=== PATIENT | female | born 1970 | race Caucasian/White ===

== ENCOUNTER 2025-05-23 07:31 | Day surgery (SDC) | payer MEDICARE, SELFPAY ==
[2025-05-23] VITALS (7 sets, daily range): BP systolic 96–114; BP diastolic 55–78; PULSE 56–66; RESP 12–18; TEMP 36.2–36.3; O2SAT 99–100; BMI 19.3
--- NOTE | 2025-05-23 07:38 | PCM.PRE.AN2 ---
ASA Classification* ASA Classification ASA Classification: 2 Assessment & Plan Anesthesia* Anesthesia Assessment Anesthesia Assessment: Discussed sedation and/or anesthesia options, risks, benefits, and alternatives with patient/parents/legal guardian/POA. Questions invited. The patient/parents/legal guardian/POA seems to understand and agrees to proceed with anesthesia plan. Reviewed the physical assessment, medical history, allergy history and patient home medications list prior to surgery/procedure/anesthetic and documented any changes. Performed airway and anesthesia risk assessments. Anesthesia Type Anesthesia Type: MAC Anesthesia Focused Assessment* Airway Assessment Mouth opens: >3 cm Mallampati Score: II Labs Anesthesia Preop lab: CBC WBC, (4.4-11.0) 5.3 K/mm3 10/23/15, 08:25 RBC, (4.2-5.4) 4.24 M/mm3 10/23/15, 08:25 Hgb, (12.0-15.0) 12.8 g/dl 10/23/15, 08:25 Hct, (37-47) 39.4 % 10/23/15, 08:25 Plt Count, (150-450) 259 K/mm3 10/23/15, 08:25 CHEMISTRY Potassium, (3.5-5.1) 4.3 mmol/L 10/23/15, 08:25 Sodium, (136-145) 143 mmol/L 10/23/15, 08:25 BUN, (7-18) 20 mg/dL H 10/23/15, 08:25 Creatinine, (0.55-1.20) 0.84 mg/dL 10/23/15, 08:25 Glucose, (70-110) 90 mg/dL 10/23/15, 08:25 TSH, (0.358-3.74) 0.79 uIU/mL 10/23/15, 08:25 COAG Urine Test Negative Negative 04/07/15, 06:00 Pre-Assessment Diagnosis/Proposed Procedure Planned Operative Procedure(s): COLONOSCOPY, EGD Anesthesia History 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 When Was Last Pacemaker Check QUESTION #4 FULL TEXT: You/Your Family Experience fever (hyperthermia) with Anesthesia Last Oral Intake Last Oral intake: Last Oral Intake NPO since Meds taken in AM with sips of water? 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 Has anyone observed you stop No 05/19/25 17:43 breathing during sleep? STOP Results Negative 05/19/25 17:43 QUESTION #5 FULL TEXT : Do you snore loudly (louder than talking or can be heard through closed doors)? 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 Specify any problems Hx of Preganancy in last 3 No 05/19/25 17:43 Months Nurse Filling Out Transfusion MGRIFFITH 05/19/25 17:43 & Questions: Date: 05/19/25 05/19/25 17:43 Time: 17:45 05/19/25 17:43 Patient unable to answer at this time (ie. 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Medication ?Instructions ?Recorded ?Last Taken ?Type topiramate 50 mg tablet 50 mg PO BID 03/31/15 Unknown History ascorbic acid (vitamin C) 1,000 mg 1 g PO DAILY Supplemental 06/24/24 Unknown History tablet (Vitamin C) docusate sodium 100 mg capsule 300 mg PO DAILY Supplemental 06/24/24 Unknown History (Stool Softener) multivitamin with minerals-folic 1 tab PO DAILY 06/24/24 Unknown History acid 200 mcg chewable tablet (Women's Multivitamin Gummies) omega 7-qxy-lwi-fish oil 1,200 mg 1 cap PO DAILY Supplemental 06/24/24 Unknown History (144 mg-216 mg) capsule (Fish Oil) sertraline 100 mg tablet 200 mg PO DAILY Bi-Polar 06/24/24 Unknown History mirtazapine 45 mg tablet 45 mg PO QHS Bi-Polar 03/18/25 Unknown History naloxone 4 mg/actuation nasal 4 mg intranasal Q2M PRN opioid 03/18/25 Unknown History spray (Narcan) overdose oxycodone-acetaminophen 10 mg-325 1 tab PO Q6H PRN pain 03/18/25 Unknown History mg tablet tizanidine 4 mg tablet 8 mg PO QHS Pain Management 03/18/25 Unknown History zolpidem 12.5 mg tablet,extended 12.5 mg PO QHS insomnia 04/20/25 Unknown History release,multiphase ferrous sulfate 324 mg (65 mg 324 mg PO DAILY 05/19/25 Unknown History iron) tablet,delayed release Allergy/AdvReac Type Severity Reaction Status Date / Time gabapentin Allergy Mild Rash Verified 05/19/25 17:37 erythromycin base Allergy Rash Verified 05/19/25 17:37 Family History Father Myocardial infarction Hypertension Grandmother Cancer Myocardial infarction Alzheimer's dementia Grandfather Cancer Mother Alzheimer's dementia Hypertension Osteoarthritis Surgical History History of shoulder surgery History of carpal tunnel release of both wrists History of foot surgery History of knee surgery History of hip surgery H/O spinal fusion Social History household members: other details: Mother Smoking Status: Former smoker alcohol intake: current alcohol intake frequency: holidays/special occasions only Review of Systems (Anesthesia) ROS Narrative System reviewed and no additional complaints, except as documented.
[2025-05-23] MEDS: Lactated Ringers 1,000 ML 15 ML IV (08:15)
--- NOTE | 2025-05-23 08:23 | PCM.HP.STD ---
HPI - General General Date of Admission: 05/23/25 Date of Service: 05/23/25 Chief Complaint: Abdominal pain weight loss HPI Narrative Chief Complaint: Unintentional weight loss and abdominal pain Details: BRIAN ROQUE, is a 54 F who presents to the office today for establishment. Colonoscopy 12/21/[address] Ledesma with 1 small polyp and melanosis coli. Pathology with hyperplastic polyp. Referred from primary care provider due to decreased appetite and unexplained weight loss. Over the past year patient has lost about 20 pounds unintentionally. She has no appetite and when she goes to eat she will become nauseous and get full quickly. She denies any medication changes during this time. She does not vomit. She has intermittent episodes of generalized abdominal pain which happen 1-2 times per week. Patient has a daily bowel movement in the morning that is typically loose. She takes oxycodone acetaminophen daily and therefore takes preventative laxatives. She has family history of ulcerative colitis and colon cancer in her grandfather. Patient does not smoke or drink alcohol. [facility] Medical History Wears glasses Depression Bipolar disorder Migraine headache Former smoker Home Medications ?Medication ?Instructions ?Recorded ?Last Taken ?Type topiramate 50 mg tablet 50 mg PO BID 03/31/15 05/22/25 History ascorbic acid (vitamin C) 1,000 mg 1 g PO DAILY Supplemental 06/24/24 05/22/25 History tablet (Vitamin C) docusate sodium 100 mg capsule 300 mg PO DAILY Supplemental 06/24/24 Unknown History (Stool Softener) multivitamin with minerals-folic 1 tab PO DAILY 06/24/24 05/22/25 History acid 200 mcg chewable tablet (Women's Multivitamin Gummies) omega 2-arf-ume-fish oil 1,200 mg 1 cap PO DAILY Supplemental 06/24/24 05/21/25 History (144 mg-216 mg) capsule (Fish Oil) sertraline 100 mg tablet 200 mg PO DAILY Bi-Polar 06/24/24 05/22/25 History mirtazapine 45 mg tablet 45 mg PO QHS Bi-Polar 03/18/25 05/22/25 History naloxone 4 mg/actuation nasal 4 mg intranasal Q2M PRN opioid 03/18/25 Unknown History spray (Narcan) overdose oxycodone-acetaminophen 10 mg-325 1 tab PO Q6H PRN pain 03/18/25 05/22/25 History mg tablet tizanidine 4 mg tablet 8 mg PO QHS Pain Management 03/18/25 05/22/25 History zolpidem 12.5 mg tablet,extended 12.5 mg PO QHS insomnia 04/20/25 05/22/25 History release,multiphase ferrous sulfate 324 mg (65 mg 324 mg PO DAILY 05/19/25 05/22/25 History iron) tablet,delayed release Allergy/AdvReac Type Severity Reaction Status Date / Time gabapentin Allergy Mild Rash Verified 05/23/25 08:02 erythromycin base Allergy Rash Verified 05/23/25 08:02 Family History Father Myocardial infarction Hypertension Grandmother Cancer Myocardial infarction Alzheimer's dementia Grandfather Cancer Mother Alzheimer's dementia Hypertension Osteoarthritis Surgical History History of shoulder surgery History of carpal tunnel release of both wrists History of foot surgery History of knee surgery History of hip surgery H/O spinal fusion Social History household members: other details: Mother Smoking Status: Former smoker alcohol intake: current alcohol intake frequency: holidays/special occasions only ROS Constitutional Constitutional: Denies fatigue, fever(s), poor appetite, weight gain or weight loss Gastrointestinal Gastrointestinal: Denies belching, bloating, change in bowel habits, change in stool character, chewing difficulty, coffee ground emesis, constipation, cramping, diarrhea, dyspepsia, dysphagia, early satiety, excessive flatus, fecal incontinence, heartburn, hematemesis, hematochezia, hemorrhoids, loose stools, melena, nausea, odynophagia, rectal bleeding, tenesmus, vomiting or weight changes Vital Signs Vital Signs Vital Signs: 05/23/25 08:04 05/23/25 08:04 05/23/25 08:04 Temperature 97.4 F L Temperature Source Temporal Pulse Rate 63 Respiratory Rate 12 Respiratory Pattern Normal Blood Pressure 111/78 Blood Pressure Mean 89 Blood Pressure Source Monitor Blood Pressure Position Semi-Fowlers Blood Pressure Location Left Arm Baseline BP 111/78 Pulse Ox 100 Oxygen Delivery Method Room Air Weight Weight: 119 lb 11.376 oz Body Mass Index (BMI) 19.3 Physical Exam Const alert, oriented x3, no apparent distress and healthy appearing General Appearance: cooperative GI normal to inspection, nondistended, normoactive bowel sounds, soft to palpation, non-tender and non-distended Percussion: normal to percussion Rectal Exam: deferred Assessment & Plan Assessment/Plan (1) Abdominal pain: (2) Early satiety: (3) Unintentional weight loss: PLAN: Assessment and Plan Assessment and Plan (1) Unintentional weight loss: Status: Acute Plan: Adri is a 54-year-old female patient with past medical history of chronic pain, lumbar radiculopathy, anxiety and bipolar 1 disorder here today for evaluation. Patient referred from primary care provider due to unintentional weight loss over the past year. Patient has lost about 20 pounds without significant lifestyle changes. She endorses a lack of appetite and early satiety. She has nausea but does not vomit. Last colonoscopy was in [address] Ledesma which revealed 1 hyperplastic polyp. Workup thus far has included a CBC and a CMP which was largely unremarkable. I recommended upper and lower endoscopy for evaluation of unintentional weight loss. Patient was agreeable to proceed. - EGD - Colonoscopy - Follow-up after procedures (2) Early satiety: Status: Acute (3) Abdominal pain: Status: Acute
--- NOTE | 2025-05-23 08:30 | COLBX_PTH ---
PATIENT: BRIAN ROQUE LOC: EN U#:[id number] AGE/SX: 54/F ROOM: RE05/23/[address]: Dr. Arden Merida DO : 1970 BED: DIS: 05/23/2025 SPEC #: [id number] RECD: 05/23/25 09:40 STATUS: RICKY REDaniel #: [id number] SALUD: 05/23/25 08:[address]: Arden Merida DEPT: SURGICAL PATHOLOGY RECD BY: Joaquín Vincent ENTERED: 05/23/25 11:27 SP TYPE: COLON BX OT DR: Dr. Param Ness DO Tissues: A - Duodenum, NOS B - Esophagus, NOS C - Ileum, NOS Procedures: Surgery Specimen Level IV HEADER OPERATION: Colonoscopy with biopsies, EGD with biopsies PRE-OP DIAGNOSIS: Abdominal pain, early satiety, unintentional weight loss TISSUE SUBMITTED: A- Duodenum biopsy, B- Random esophagus biopsy, C- Terminal ileum biopsy MICROSCOPIC DIAGNOSIS A. Small intestine, duodenum, biopsy: - Normal villous architecture with no specific pathologic change. - Negative for increased intraepithelial lymphocytes. B. Esophagus, random, biopsy: - Squamous mucosa with mild reactive changes. - Negative for eosinophils. C. Small intestine, terminal ileum, biopsy: - No specific pathologic change. MICROSCOPIC DESCRIPTION Slides are reviewed. GROSS DESCRIPTION A. Received in fixative is one container labeled with the patient's name and designated Duodenum biopsy. The specimen consists of multiple irregular fragments of solano tissue that in aggregate measure 1.5 x 0.4 x 0.1 cm. The specimen is totally submitted in one cassette. B. Received in fixative is one container labeled with the patient's name and designated Random esophagus biopsy. The specimen consists of multiple irregular fragments of solano tissue that in aggregate measure 0.7 x 0.4 x 0.1 cm. The specimen is totally submitted in one cassette. C. Received in fixative is one container labeled with the patient's name and designated Terminal ileum biopsy. The specimen consists of two irregular fragments of solano tissue that measure 0.3 and 0.4 cm. The specimen is totally submitted in one cassette. AK 05/23/2025 CPT:58426l6
--- NOTE | 2025-05-23 09:35 | PCM.POST.ANE ---
Anesthesia: Postop Eval I Current Vital Signs Temperature: 97.1 F Pulse Rate: 64 Blood Pressure: 114/55 Respiratory Rate: 16 Pulse Ox: 99 Oxygen Delivery Method: Room Air Assessment Airway patent: Yes Spontaneous unlabored respirations: Yes Mental status: Awake and Confused nausea: No Vomiting: No Anesthesia Complication: No Fluid Hydration Crystalloid volume administer (ml): 800 Total IV fluid infused: 800 Progress Note Anesthesia document: Postop Eval 1 completed: Yes
--- NOTE | 2025-05-23 09:43 | OP.EGD_ITS ---
Patient Name: Ursula Morataya Procedure Date: 05/23/2025 8:55 AM Date of : 1970 Age: 54 Procedure: Upper GI endoscopy Indications: Epigastric abdominal pain, Functional Dyspepsia, Indigestion, Weight loss Providers: Arden Merida DO Medicines: Monitored Anesthesia Care Patient Profile: This is a 54 year old female. Refer to note in patient chart for documentation of history and physical. Patient has symptoms of chronic epigastric abdominal pain and chronic dyspepsia. Complications: No immediate complications. Procedure: Pre-Anesthesia Assessment: - Prior to the procedure, a History and Physical was performed, and patient medications and allergies were reviewed. The patient is competent. The risks and benefits of the procedure and the sedation options and risks were discussed with the patient. All questions were answered and informed consent was obtained. Patient identification and proposed procedure were verified by the physician in the pre-procedure area. Mental Status Examination: alert and oriented. Airway Examination: normal oropharyngeal airway and neck mobility. Respiratory Examination: clear to auscultation. CV Examination: normal. Prophylactic Antibiotics: The patient does not require prophylactic antibiotics. Prior Anticoagulants: The patient has taken no anticoagulant or antiplatelet agents except for NSAID medication. ASA Grade Assessment: II - A patient with mild systemic disease. After reviewing the risks and benefits, the patient was deemed in satisfactory condition to undergo the procedure. The anesthesia plan was to use monitored anesthesia care (MAC). Immediately prior to administration of medications, the patient was re-assessed for adequacy to receive sedatives. The heart rate, respiratory rate, oxygen saturations, blood pressure, adequacy of pulmonary ventilation, and response to care were monitored throughout the procedure. The physical status of the patient was re-assessed after the procedure. After obtaining informed consent, the endoscope was passed under direct vision. Throughout the procedure, the patient's blood pressure, pulse, and oxygen saturations were monitored continuously. The Colonoscope was introduced through the mouth, and advanced to the third part of the duodenum. Small bowel enteroscopy was deemed necessary. The upper GI endoscopy was accomplished without difficulty. The patient tolerated the procedure well. Scope In: 9:07:21 AM Scope Out: 9:10:55 AM Total Procedure Duration Time 0 hours 3 minutes 34 seconds Findings: Diffuse, white plaques were found in the entire esophagus. Biopsies were taken with a cold forceps for histology. Verification of patient identification for the specimen was done. Estimated blood loss was minimal. No gross lesions were noted in the entire examined stomach. Patchy mild inflammation characterized by erythema was found in the entire duodenum. Biopsies were taken with a cold forceps for histology. Verification of patient identification for the specimen was done. Estimated blood loss was minimal. Impression: - Esophageal plaques were found, consistent with candidiasis. Biopsied. - No gross lesions in the entire stomach. - Chronic duodenitis. Biopsied. Recommendation: - Discharge patient to home. - Resume previous diet. - Continue present medications. - Await pathology results. -, Nystatin swish and swallow x 7 days Procedure Code(s): --- Professional --- 04786, Small intestinal endoscopy, enteroscopy beyond second portion of duodenum, not including ileum; with biopsy, single or multiple CPT copyright 2021 [employer]. All rights reserved. The codes documented in this report are preliminary and upon program support clerk review may be revised to meet current compliance requirements. Arden Merida DO 05/23/2025 9:43:10 AM This report has been signed electronically. Number of Addenda: 0 Note Initiated On: 05/23/2025 8:55 AM
--- NOTE | 2025-05-23 09:44 | OP.PROVAT_ITS ---
05/23/2025 Param Ness Do Re : Upper GI endoscopy procedure for Ursula Morataya Dear [place] This procedure was performed on Friday, May 23, 2025. My impressions and recommendations are as follows: Impressions : - Esophageal plaques were found, consistent with candidiasis. Biopsied. - No gross lesions in the entire stomach. - Chronic duodenitis. Biopsied. Recommendations : - Discharge patient to home. - Resume previous diet. - Continue present medications. - Await pathology results. -, Nystatin swish and swallow x 7 days My findings are described in the full procedure note, which is enclosed. If I can be of further assistance, please feel free to contact me at . Sincerely, Arden Merida, 05/23/2025 9:43:10 AM This report has been signed electronically.
--- NOTE | 2025-05-23 09:46 | OP.PROVAT_ITS ---
05/23/2025 Param Ness Do Re : Colonoscopy procedure for Ursula Morataya [place] This procedure was performed on Friday, May 23, 2025. My impressions and recommendations are as follows: Impressions : - Diverticulosis in the recto-sigmoid colon. - Congested mucosa in the distal ileum and in the terminal ileum. Biopsied. Recommendations : - Discharge patient to home. - Resume previous diet. - Continue present medications. - Await pathology results. - Repeat colonoscopy in 10 years for screening purposes. My findings are described in the full procedure note, which is enclosed. If I can be of further assistance, please feel free to contact me at . Sincerely, Arden Merida, 05/23/2025 9:45:59 AM This report has been signed electronically.
--- NOTE | 2025-05-23 09:46 | OP.COLON_ITS ---
Patient Name: Ursula Morataya Procedure Date: 05/23/2025 9:11 AM Date of : 1970 Age: 54 Procedure: Colonoscopy Indications: Screening for colorectal malignant neoplasm Providers: Arden Merida DO Medicines: Monitored Anesthesia Care Patient Profile: This is a 54 year old female. Refer to note in patient chart for documentation of history and physical. Patient has symptoms of chronic epigastric abdominal pain and chronic dyspepsia. Last Colonoscopy: none. The patient's first colonoscopy is today. Complications: No immediate complications. Procedure: Pre-Anesthesia Assessment: - Prior to the procedure, a History and Physical was performed, and patient medications and allergies were reviewed. The patient is competent. The risks and benefits of the procedure and the sedation options and risks were discussed with the patient. All questions were answered and informed consent was obtained. Patient identification and proposed procedure were verified by the physician in the pre-procedure area. Mental Status Examination: alert and oriented. Airway Examination: normal oropharyngeal airway and neck mobility. Respiratory Examination: clear to auscultation. CV Examination: normal. Prophylactic Antibiotics: The patient does not require prophylactic antibiotics. Prior Anticoagulants: The patient has taken no anticoagulant or antiplatelet agents except for NSAID medication. ASA Grade Assessment: II - A patient with mild systemic disease. After reviewing the risks and benefits, the patient was deemed in satisfactory condition to undergo the procedure. The anesthesia plan was to use monitored anesthesia care (MAC). Immediately prior to administration of medications, the patient was re-assessed for adequacy to receive sedatives. The heart rate, respiratory rate, oxygen saturations, blood pressure, adequacy of pulmonary ventilation, and response to care were monitored throughout the procedure. The physical status of the patient was re-assessed after the procedure. After I obtained informed consent, the scope was passed under direct vision. Throughout the procedure, the patient's blood pressure, pulse, and oxygen saturations were monitored continuously. The Colonoscope was introduced through the anus and advanced to the terminal ileum. The colonoscopy was performed without difficulty. The patient tolerated the procedure well. The quality of the bowel preparation was adequate. The terminal ileum, ileocecal valve, appendiceal orifice, and rectum were photographed. Scope In: 9:12:36 AM Scope Withdrawal Time 0 hours 9 minutes 52 seconds Scope Out: 9:27:15 AM Total Procedure Duration Time 0 hours 14 minutes 39 seconds Findings: The perianal and digital rectal examinations were normal. A few small-mouthed diverticula were found in the recto-sigmoid colon. A patchy area of the distal ileum and terminal ileum was congested. Biopsies were taken with a cold forceps for histology. Verification of patient identification for the specimen was done. Estimated blood loss was minimal. Impression: - Diverticulosis in the recto-sigmoid colon. - Congested mucosa in the distal ileum and in the terminal ileum. Biopsied. Recommendation: - Discharge patient to home. - Resume previous diet. - Continue present medications. - Await pathology results. - Repeat colonoscopy in 10 years for screening purposes. Procedure Code(s): --- Professional --- 31142, Colonoscopy, flexible; with biopsy, single or multiple CPT copyright 2021 [employer]. All rights reserved. The codes documented in this report are preliminary and upon welding machine assembler review may be revised to meet current compliance requirements. Arden Merida DO 05/23/2025 9:45:59 AM This report has been signed electronically. Number of Addenda: 0 Note Initiated On: 05/23/2025 9:11 AM
--- NOTE | 2025-05-23 09:54 | PCM.POSTANE2 ---
Anesthesia Postop Eval I Sum Postop Eval Completion status Anesthesia document: Postop Eval 1 completed: Yes Anesthesia Postop Eval I Summary Anesthesia Postop Eval I Summary: Anesthesia Postop Eval I: Assessment Summary Airway patent Yes 05/23/25 09:36 [email or web address] Spontaneous unlabored Yes 05/23/25 09:36 [email or web address] respirations Mental status Awake,Confused 05/23/25 09:36 [email or web address] nausea No 05/23/25 09:36 [email or web address] Vomiting No 05/23/25 09:36 [email or web address] Anesthesia Postop Eval I: Fluid Summary Crystalloid volume administer 800 05/23/25 09:36 [email or web address] (ml) Colloids volume administered ( ml) Blood Product volume administered (ml) Total IV fluid infused 800 05/23/25 09:36 [email or web address] Anesthesia Postop Eval I: Summary Notes Anesthesia Complication No 05/23/25 09:36 [email or web address] Anesthesia Complication Comment: Post-operative progress note Anesthesia: Postop Eval II Evaluation Mental status: Awake Pain Level: 0 nausea: No Vomiting: No
== END 2025-05-23 10:12 | disposition home or self-care (01) ==
LOC: EN 07:34 → AC 07:36
PROVIDERS: PCP Student in an Organized Health Care Education/Training Program; Referring Provider Student in an Organized Health Care Education/Training Program; Visit Provider Internal Medicine Gastroenterology
PROC: 0DJD8ZZ Inspection of Lower Intestinal Tract, Via Natural or Artificial Opening Endoscopic (ICD-10-PCS; CPT 45378; principal; 2025-05-23 08:25)
DX: R10.9 Unspecified abdominal pain (principal); K29.80 Duodenitis without bleeding; R68.81 Early satiety; K63.89 Other specified diseases of intestine; Z87.891 Personal history of nicotine dependence; K57.90 Diverticulosis of intestine, part unspecified, without perforation or abscess without bleeding; R63.4 Abnormal weight loss; F32.A Depression, unspecified; Z79.899 Other long term (current) drug therapy; K22.89 Other specified disease of esophagus; Z68.1 Body mass index [BMI] 19.9 or less, adult
CPT/HCPCS: 44361; 45380; 88305; J2405